=== PATIENT | male | born 1980 | race Caucasian/White ===

== ENCOUNTER 2020-02-05 15:01 | Emergency (ER) | payer OTHER ==
[2020-02-05] MEDS ORDERED: Lidocaine 1% (PF) 30 ML VIAL ONE (15:58)
--- NOTE | 2020-02-05 16:28 | RAD ---
Exam: XR Finger(s) Lt Min 2 View HISTORY: Injury to left ring finger. COMPARISON: None FINDINGS: There is a mildly comminuted fracture involving the distal portion of the distal phalanx and tuft of the distal phalanx left ring finger. There is separation and mild displacement of fracture fragments. This fracture is just beneath the nailbed, and an open fracture is a possibility. No addit ional fracture is seen, and there is no dislocation. IMPRESSION: Mildly comminuted and displaced fracture involving the distal portion of the distal phalanx and tuft of the distal phalanx left ring finger. This fracture is just beneath the nailbed and may represent an open fracture.
[2020-02-05] MEDS ORDERED: Bacitracin 1 PK ONE (17:17)
== END 2020-02-05 17:35 | disposition home or self-care (01) ==
LOC: ERS 15:01
DX: S62.635B Displaced fracture of distal phalanx of left ring finger, initial encounter for open fracture (principal); F17.210 Nicotine dependence, cigarettes, uncomplicated; W23.0XXA Caught, crushed, jammed, or pinched between moving objects, initial encounter
CPT/HCPCS: 11760; J2001